=== PATIENT | female | born 1990 | race Caucasian/White ===

== ENCOUNTER 2020-11-18 17:15 | Inpatient (IN) | payer OTHER ==
[~2020-11-18] VITALS: Ht 157.5 cm; Wt 85.3 kg
[2020-11-18] MEDS ORDERED: OXYTOCIN 30 UNITS/LACT RINGERS 500 ML IV PRN ×3 (17:30→20:56)
[2020-11-18] MEDS ORDERED: METOCLOPRAMIDE HCL 5 MG/ML 2 ML VIAL IVP PRN (17:30)
[2020-11-18] MEDS ORDERED: METHYLERGONOVINE MALEATE 0.2 MG/ML VIAL IM PRN (17:30)
[2020-11-18] MEDS ORDERED: RINGERS SOLUTION,LACTATED 1,000 ML IV PRN (17:30)
[2020-11-18] MEDS ORDERED: LIDOCAINE/PF 1% 30 ML VIAL SQ PRN (17:30)
[2020-11-18] MEDS ORDERED: FentaNYL CITRATE PF 100 MCG/2 ML VIAL IVP PRN (17:30)
[2020-11-18] MEDS ORDERED: OXYTOCIN 30 UNITS/LACT RINGERS 500 ML IV ONE (17:30)
[2020-11-18] MEDS ORDERED: CITRIC ACID/SODIUM CITRATE 30 ML SOLUTION UDCUP PO PRN (17:30)
[2020-11-18 18:01] VITALS: BP 133/75
[2020-11-18] MEDS ORDERED: FOLI0.4T6 PO (18:07)
[2020-11-18] MEDS ORDERED: FERR236T3 PO (18:07)
[2020-11-18] MEDS ORDERED: PREN-217 PO (18:07)
[2020-11-18] MEDS ORDERED: MISOPROSTOL 50 MCG TABLET ONE (18:11)
[2020-11-18] MEDS ORDERED: MISOPROSTOL 50 MCG TABLET PO SCH (18:15)
[2020-11-18 18:26] LABS: BASOPHILS % (AUTO) 0.3 % (0.0-2.0); EOSINOPHILS % (AUTO) 0.4 % (1.0-6.0); HEMATOCRIT 39.3 % (36-46); HEMOGLOBIN 13.3 g/dL (12.0-16.0); LYMPHOCYTES # (AUTO) 1.6 K/uL (1.0-4.8); LYMPHOCYTES % (AUTO) 18.8 % (22.0-44.0); MEAN CORPUSCULAR HEMOGLOBIN 31.2 pg (26.0-34.0); MEAN CORPUSCULAR HGB CONC 33.8 G/dL (31.0-37.0); MEAN CORPUSCULAR VOLUME 92 fL (80-100); MONOCYTES # (AUTO) 0.7 K/uL (0.1-1.0); NEUTROPHILS % (AUTO) 72.5 % (40.0-70.0); PLATELET COUNT (AUTO) 178 K/uL (150-450); RED BLOOD CELL COUNT(AUTO) 4.25 MIL/uL (4.00-5.20); RED CELL DISTRIBUTION WIDTH 14.6 % (11.5-14.5)
[2020-11-18] MEDS ORDERED: ASPI-728 PO (18:38)
[2020-11-18 18:42] LABS: COVID AG,FIA SOURCE NASOPHARYNGEAL
[2020-11-18 19:57] LABS: ANION GAP 13 mmol/L (8-16); CALCIUM, TOTAL 9.1 mg/dL (8.8-10.5); CARBON DIOXIDE 20 mmol/L (22-29); CHLORIDE 101 mmol/L (98-107); CREATININE 0.52 mg/dL (0.60-1.30); GLOMERULAR FILTR. RATE CALC > 60 mL/min (>60); GLUCOSE,RANDOM 85 mg/dL (70-110); POTASSIUM 3.7 mmol/L (3.5-5.1); SODIUM SERUM 134 mmol/L (136-145); UREA NITROGEN, BLOOD 8 mg/dL (7-18)
[2020-11-18] MEDS ORDERED: OXYGEN THERAPY IH SCH (20:00)
[2020-11-18 20:02] LABS: ALANINE AMINOTRANSFERASE 18 U/L (12-78); ALBUMIN 2.9 g/dL (3.4-5.0); ALKALINE PHOSPHATASE 303 U/L (46-116); ASPARTATE AMINOTRANSFERASE 15 U/L (15-37); BILIRUBIN,TOTAL 0.1 mg/dL (0.1-1.0)
[2020-11-18] MEDS: RINGERS SOLUTION,LACTATED 1,000 ML IV SCH (20:30)
[2020-11-18 21:02] LABS: CREATININE,URINE RANDOM 94.6 mg/dL (30.0-125.0)
[2020-11-19] MEDS ORDERED: ROPIVACAINE HCL/PF 0.2% 100 ML ED ONE (03:04)
[2020-11-19] MEDS ORDERED: MEPERIDINE-PF 25 MG/ML VIAL IVP PRN (03:30)
[2020-11-19] MEDS ORDERED: FentaNYL CITRATE PF 100 MCG/2 ML VIAL IVP PRN (03:30)
[2020-11-19] MEDS ORDERED: HYDROmorphone 2 MG/ML VIAL IVP PRN (03:30)
[2020-11-19] MEDS: RINGERS SOLUTION,LACTATED 1,000 ML IV SCH (03:58)
[2020-11-19] MEDS ORDERED: OXYGEN THERAPY IH SCH (08:00)
[2020-11-19] MEDS ORDERED: KETOROLAC TROMETHAMINE 30 MG/ML VIAL IM ONE (08:45)
[2020-11-19] MEDS ORDERED: OXYTOCIN 30 UNITS/LACT RINGERS 500 ML IV ONE (09:15)
[2020-11-19] MEDS ORDERED: GLYCERIN/WITCH HAZEL LEAF 40 PADS JAR TP PRN (09:15)
[2020-11-19] MEDS ORDERED: OxyCODONE HCL/ACETAMINOPHEN 5-325 MG TABLET PO PRN ×2 (09:15)
[2020-11-19] MEDS ORDERED: BENZOCAINE 20%/MENTHOL 56 GM SPRAY CANISTER TP PRN (09:15)
[2020-11-19] MEDS ORDERED: LIDOCAINE/PF 1% 30 ML VIAL SQ PRN (09:15)
[2020-11-19] MEDS ORDERED: LANOLIN 7 GM OINTMENT TP PRN (09:15)
[2020-11-19] MEDS: IBUPROFEN 800 MG TABLET PO PRN (20:49)
[2020-11-19] MEDS: MAGNESIUM HYDROXIDE SUSPENSION 30 ML UDCUP PO PRN (20:50)
[2020-11-20] MEDS: IBUPROFEN 800 MG TABLET PO PRN ×3 (04:24→19:49)
[2020-11-20 06:39] LABS: BASOPHILS % (AUTO) 0.3 % (0.0-2.0); HEMATOCRIT 33.4 % (36-46); HEMOGLOBIN 11.2 g/dL (12.0-16.0); LYMPHOCYTES # (AUTO) 2.3 K/uL (1.0-4.8); LYMPHOCYTES % (AUTO) 21.3 % (22.0-44.0); MEAN CORPUSCULAR HEMOGLOBIN 31.3 pg (26.0-34.0); MEAN CORPUSCULAR HGB CONC 33.6 G/dL (31.0-37.0); MEAN CORPUSCULAR VOLUME 93 fL (80-100); MONOCYTES # (AUTO) 0.9 K/uL (0.1-1.0); MONOCYTES % (AUTO) 8.2 % (2.0-9.0); NEUTROPHILS # (AUTO) 7.3 K/uL (1.8-7.7); NEUTROPHILS % (AUTO) 69.2 % (40.0-70.0); PLATELET COUNT (AUTO)-OB 145 K/uL (150-450); RED BLOOD CELL COUNT(AUTO) 3.59 MIL/uL (4.00-5.20); RED CELL DISTRIBUTION WIDTH 14.3 % (11.5-14.5)
[2020-11-20] MEDS: MAGNESIUM HYDROXIDE SUSPENSION 30 ML UDCUP PO PRN ×3 (09:24→20:51)
[2020-11-21] MEDS ORDERED: DOCU-275 PO (07:31)
[2020-11-21] MEDS ORDERED: IBUP-2071 PO (07:31)
[2020-11-21] MEDS ORDERED: FERR-89 PO (07:32)
[2020-11-21] MEDS: IBUPROFEN 800 MG TABLET PO PRN (18:33)
[2020-11-21] MEDS: MAGNESIUM HYDROXIDE SUSPENSION 30 ML UDCUP PO PRN (21:01)
== END 2020-11-22 11:15 | disposition home or self-care (01) | DRG 560 ==
LOC: OBSVTOIN 17:15 → 4S 17:15
PROVIDERS: ADMIT Obstetrics & Gynecology Obstetrics; ATTEND Obstetrics & Gynecology Obstetrics
PROC: 10E0XZZ Delivery of Products of Conception, External Approach (ICD-10-PCS; principal; 2020-11-19)
PROC: 3E0R3BZ Introduction of Anesthetic Agent into Spinal Canal, Percutaneous Approach (ICD-10-PCS; 2020-11-19)
PROC: 00HU33Z Insertion of Infusion Device into Spinal Canal, Percutaneous Approach (ICD-10-PCS; 2020-11-19)
PROC: 0W8NXZZ Division of Female Perineum, External Approach (ICD-10-PCS; 2020-11-19)
DX: O70.9 Perineal laceration during delivery, unspecified (principal); Z20.822 Contact with and (suspected) exposure to COVID-19; Z37.0 Single live birth; Z3A.40 40 weeks gestation of pregnancy
CPT/HCPCS: 82570; 84156; 86850; 86900; 86901; 87426; A9575; J1885; J2590; J2795; J3010; J3490; J7120